=== PATIENT | male | born 1935 | race Caucasian/White ===

== ENCOUNTER 2018-03-27 17:42 | Emergency (ER) | payer MEDICARE, OTHER ==
[2018-03-27 17:53] VITALS: BP 166/65
--- NOTE | 2018-03-27 18:10 | ER Document Report ---
ED Medical Screen (RME) - General Chief Complaint: Urinary Problem Stated Complaint: PAINFUL URINATION Time Seen by Provider: 03/27/18 18:03 Notes: RAPID MEDICAL EVALUATION DISCLOSURE I have seen this patient as part of a Rapid Medical Evaluation and, if applicable, placed any initially appropriate orders. The patient will be seen and fully evaluated, including a full history and physical exam, by a provider ( in Main ED or Fast Track) when a room becomes available. 82-year-old male here with complaints of dysuria urgency incontinence ongoing past 2 days. Overnight, he has had a decrease in urination and abdominal pain, stating it feels like he is "unable to evacuate". He has only had a few drops or "a very slight stream" since yesterday evening. He denies any prior history of urinary retention or BPH. He also complains of a painful rash. He was seen yesterday at an urgent care and was diagnosed with shingles however family reports his urine did not show infection. EXAM Mild suprapubic TTP - Related Data Allergies/Adverse Reactions: ciprofloxacin [From Cipro] Allergy (Verified 03/27/18 17:47) Past Medical History - Social History Chew tobacco use (# tins/day): No Frequency of alcohol use: Occasional Drug Abuse: None Renal/ Medical History: Denies: Hx Peritoneal Dialysis Physical Exam - Vital signs Vitals: Temp Pulse Resp BP Pulse Ox 97.5 F 76 16 166/65 H 95 03/27/18 17:49 03/27/18 17:49 03/27/18 17:49 03/27/18 17:49 03/27/18 17:49 Course - Vital Signs Vital signs: Temp Pulse Resp BP Pulse Ox 97.5 F 76 16 166/65 H 95 03/27/18 17:49 03/27/18 17:49 03/27/18 17:49 03/27/18 17:49 03/27/18 17:49
[2018-03-27 19:11] LABS: ABSOLUTE EOSINOPHILS # (AUTO) 0.4 10^3/uL (0.0-0.6); ABSOLUTE LYMPHOCYTES (AUTO) 2.3 10^3/uL (0.5-4.7); ABSOLUTE MONOCYTES (AUTO) 0.7 10^3/uL (0.1-1.4); ABSOLUTE NEUT (AUTO) 5.2 10^3/uL (1.7-8.2); BASOPHILS % (AUTO) 0.5 % (0-2); EOSINOPHILS % (AUTO) 4.6 % (0-6); HEMATOCRIT 36.4 % (37.9-51.0); HEMOGLOBIN 12.3 g/dL (13.5-17.0); MEAN CORPUSCULAR HEMOGLOBIN 29.3 pg (27.0-33.4); MEAN CORPUSCULAR HGB CONC 33.8 g/dL (32.0-36.0); MEAN CORPUSCULAR VOLUME 87 fl (80-97); PLATELET COUNT 306 10^3/uL (150-450); RED CELL DISTRIBUTION WIDTH 14.4 % (11.5-14.0); SEGMENTED NEUTROPHILS % (AUTO) 59.9 % (42-78); TOTAL CELLS COUNTED % (AUTO) 100 %; WHITE BLOOD COUNT 8.7 10^3/uL (4.0-10.5)
[2018-03-27 19:23] LABS: APPEARANCE,URINE CLEAR; BILIRUBIN,URINE NEGATIVE (NEGATIVE); COLOR,URINE STRAW; GLUCOSE, URINE NEGATIVE (NEGATIVE); KETONES,URINE NEGATIVE (NEGATIVE); LEUKOCYTE ESTERASE,URINE NEGATIVE (NEGATIVE); NITRITE,URINE NEGATIVE (NEGATIVE); PROTEIN,URINE 30 mg/dL (NEGATIVE); URINE SPECIFIC GRAVITY 1.005; UROBILINOGEN,URINE NEGATIVE mg/dL (<2.0)
[2018-03-27 19:26] LABS: ALANINE AMINOTRANSFERASE 24 U/L (21-72); ALBUMIN 4.1 g/dL (3.5-5.0); ALKALINE PHOSPHATASE 41 U/L (38-126); ANION GAP 14 (5-19); ASPARTATE AMINO TRANSFERASE 21 U/L (17-59); BILIRUBIN,DIRECT 0.2 mg/dL (0.0-0.4); BILIRUBIN,TOTAL 0.4 mg/dL (0.2-1.3); BLOOD UREA NITROGEN 27 mg/dL (7-20); CALCIUM 9.9 mg/dL (8.4-10.2); CARBON DIOXIDE 25 mmol/L (22-30); CHLORIDE 105 mmol/L (98-107); GLUCOSE 84 mg/dL (75-110); POTASSIUM 4.5 mmol/L (3.6-5.0); SODIUM 143.5 mmol/L (137-145); TOTAL PROTEIN 8.6 g/dL (6.3-8.2)
[2018-03-27] MEDS ORDERED: LIDOCAINE 2% URO-JET 5 ML KIT MM ONE (20:50)
[2018-03-27] MEDS ORDERED: MORPHINE SULFATE IR 15 MG TABLET PO ONE (22:23)
--- NOTE | 2018-03-27 22:24 | ER Document Report ---
ED General - General Chief Complaint: Urinary Problem Stated Complaint: PAINFUL URINATION Time Seen by Provider: 03/27/18 18:03 Notes: Patient is an 82 year old male that comes to the ED for chief complaint of abdominal pain and swelling with painful urination and difficulty urinating. Patient states he feels slightly better after he does urinate, but is only dribbling. He denies history of BPH or the same difficulty. He denies vomiting , fever, flank pain. Patient also complains of a painful rash, seen yesterday and diagnosed with shingles, placed on Valtrex but not given any pain medication. Thirdly patient states he had a black stool earlier, eats a lot of spinach but wants to be checked for blood. Rash is mainly on the right buttock extending down the thigh. Past medical history includes hypertension, hyperlipidemia, type 2 diabetes. - Related Data Allergies/Adverse Reactions: ciprofloxacin [From Cipro] Allergy (Verified 03/27/18 17:47) Past Medical History - General Information source: Patient, Relative - Social History Smoking Status: Former Smoker Chew tobacco use (# tins/day): No Frequency of alcohol use: Occasional Drug Abuse: None Lives with: Family Family History: Reviewed & Not Pertinent Patient has suicidal ideation: No Patient has homicidal ideation: No - Past Medical History Cardiac Medical History: Reports: Hx Hypercholesterolemia, Hx Hypertension Endocrine Medical History: Reports: Hx Diabetes Mellitus Type 2 Renal/ Medical History: Denies: Hx Peritoneal Dialysis Past Surgical History: Reports: Hx Cholecystectomy - Immunizations Hx Diphtheria, Pertussis, Tetanus Vaccination: Yes Review of Systems - Review of Systems Constitutional: No symptoms reported EENT: No symptoms reported Cardiovascular: See HPI Respiratory: No symptoms reported Gastrointestinal: See HPI Genitourinary: No symptoms reported Male Genitourinary: No symptoms reported Musculoskeletal: No symptoms reported Skin: No symptoms reported Hematologic/Lymphatic: No symptoms reported Neurological/Psychological: No symptoms reported Physical Exam - Vital signs Vitals: Temp Pulse Resp BP Pulse Ox 97.5 F 76 16 166/65 H 95 03/27/18 17:49 03/27/18 17:49 03/27/18 17:49 03/27/18 17:49 03/27/18 17:49 - Notes Notes: GENERAL: Anxious, agitated, appears to be in pain, restless HEAD: Normocephalic, atraumatic. EYES: Pupils equal, round, and reactive to light. Extraocular movements intact. ENT: Oral mucosa moist, tongue midline. [Nares patent, no nasal septal hematoma , TM's intact.] NECK: Full range of motion. Supple. Trachea midline. LUNGS: Clear to auscultation bilaterally, no wheezes, rales, or rhonchi. No respiratory distress. HEART: Regular rate and rhythm. No murmur ABDOMEN: Distended abdomen, specifically in the lower quadrant, umbilical hernia is small and unremarkable and easily reducible. RECTAL: No black or bloody stool noted, no tenderness noted, unremarkable exam. EXTREMITIES: Moves all 4 extremities spontaneously. No edema, normal radial and dorsalis pedis pulses bilaterally. No cyanosis. BACK: no cervical, thoracic, lumbar midline tenderness. No saddle anesthesia, normal distal neurovascular exam. NEUROLOGICAL: Alert and oriented x3. Normal speech. [cranial nerves II through XII grossly intact]. SKIN: Warm, dry, normal turgor. No rashes or lesions noted. Course - Re-evaluation Re-evalutation: A quick bedside ultrasound was performed, this shows a very distended bladder with probably over 1000 cc of urine, patient has a distended belly with tenderness, Lopez catheterization was immediately performed and this had 1500 cc of urine evacuated. Afterwards patient's symptoms completely resolved. Patient very grateful, now asymptomatic except for intermittent pain from his rash. Rash does appear to be shingles, symptoms started 1 week ago, he is on Valtrex, discussed options, patient will be placed on pain medication and prednisone after discussion. He is very good at managing his blood sugars he reports. Stool is negative for blood, rectal exam unremarkable. Patient is visiting from out of town, he with family, he will follow-up with urology at home, he already called and had this set up, he states he will follow -up within the next few days, he will have the Lopez catheter remain with a leg bag, he was shown how to use this. Discussed follow-up and return precautions. Patient and family state understanding and agreement. - Vital Signs Vital signs: Temp Pulse Resp BP Pulse Ox 97.5 F 76 16 166/65 H 95 03/27/18 17:49 03/27/18 17:49 03/27/18 17:49 03/27/18 17:49 03/27/18 17:49 - Laboratory Result Diagrams: 03/27/18 18:49 03/27/18 18:49 Laboratory results interpreted by me: 03/27/18 03/27/18 03/27/18 18:49 18:49 18:49 RBC 4.20 L Hgb 12.3 L Hct 36.4 L RDW 14.4 H BUN 27 H Creatinine 1.41 H Est GFR ( Amer) 58 L Est GFR (Non-Af Amer) 48 L Total Protein 8.6 H Urine Protein 30 H Discharge - Discharge Clinical Impression: Obstructive uropathy Abdominal pain Qualifiers: Abdominal location: generalized Qualified Code(s): R10.84 - Generalized abdominal pain Shingles rash Qualifiers: Herpes zoster complications: without complications Qualified Code(s): B02.9 - Zoster without complications Condition: Stable Disposition: HOME, SELF-CARE Additional Instructions: You will need to keep the Lopez catheter in for now using the leg bag and emptying the leg bag. Your enlarged prostate appears to have caused an obstruction which caused urinary retention, bladder swelling, and abdominal pain. This was drained. You need to see Urology in close followup. Your urine does not show an infection today. Continue valacyclovir for shingles rash, you have been provided with prednisone additionally, avoid sugary foods while taking this. You can take the morphine for pain as prescribed, if you do also take the Colace stool softener to avoid constipation. Return immediately if you worsen including severe abdominal pain, vomiting, fever, or any other concerning or worsening symptoms. Prescriptions: Morphine Sulfate [Morphine Ir 15 Mg Tablet] 15 mg PO Q4HP PRN #20 tablet PRN Reason: Docusate Sodium [Colace 100 mg Capsule] 100 mg PO ASDIR PRN #30 capsule PRN Reason: Prednisone 60 mg PO DAILY #21 tablet
== END 2018-03-27 23:50 | disposition home or self-care (01) ==
LOC: ER 17:42
DX: N13.9 Obstructive and reflux uropathy, unspecified (principal); B02.9 Zoster without complications; K42.9 Umbilical hernia without obstruction or gangrene; R10.84 Generalized abdominal pain; R19.5 Other fecal abnormalities; E11.9 Type 2 diabetes mellitus without complications; I10 Essential (primary) hypertension; Z87.891 Personal history of nicotine dependence; Z88.1 Allergy status to other antibiotic agents; Z94.9 Transplanted organ and tissue status, unspecified
CPT/HCPCS: 99283; 51702; 36415; 87086; 85025; 82272; 80053; 81001; A9270

== ENCOUNTER 2018-03-28 01:56 | Emergency (ER) | payer MEDICARE, OTHER ==
[2018-03-28] MEDS ORDERED: ASPIRIN 81 MG TABLET, CHEWABLE PO ONE (03:44)
[2018-03-28 04:22] LABS: ABSOLUTE EOSINOPHILS # (AUTO) 0.1 10^3/uL (0.0-0.6); ABSOLUTE LYMPHOCYTES (AUTO) 0.9 10^3/uL (0.5-4.7); ABSOLUTE MONOCYTES (AUTO) 0.6 10^3/uL (0.1-1.4); ABSOLUTE NEUT (AUTO) 6.6 10^3/uL (1.7-8.2); BASOPHILS % (AUTO) 0.3 % (0-2); EOSINOPHILS % (AUTO) 0.7 % (0-6); HEMATOCRIT 33.9 % (37.9-51.0); HEMOGLOBIN 11.8 g/dL (13.5-17.0); LYMPHOCYTES % (AUTO) 10.6 % (13-45); MEAN CORPUSCULAR HEMOGLOBIN 29.8 pg (27.0-33.4); MEAN CORPUSCULAR HGB CONC 34.7 g/dL (32.0-36.0); MEAN CORPUSCULAR VOLUME 86 fl (80-97); MONOCYTES % (AUTO) 7.8 % (3-13); PLATELET COUNT 256 10^3/uL (150-450); RED BLOOD COUNT 3.95 10^6/uL (4.35-5.55); SEGMENTED NEUTROPHILS % (AUTO) 80.6 % (42-78); TOTAL CELLS COUNTED % (AUTO) 100 %; WHITE BLOOD COUNT 8.1 10^3/uL (4.0-10.5)
--- NOTE | 2018-03-28 04:23 | ER Document Report ---
ED Cardiac <EVELIOTIANNA - Last Filed: 03/28/18 15:45> - General TRAVEL OUTSIDE OF THE [place] IN LAST 30 DAYS: No <MARYLIN RANGEL - Last Filed: 03/29/18 19:27> - General Chief Complaint: Chest Pain Stated Complaint: CHEST PAIN Time Seen by Provider: 03/28/18 04:06 Notes: Patient is an 82-year-old male that comes emergency department for chief complaint of chest pain. He was discharged from here after he had had a problem with obstructive uropathy secondary to benign prostate hypertrophy, he had a Garcia catheter placed and he was asymptomatic, he states that after he got home and he was going to bed he suddenly felt a pain like a 2 x 4 across his chest, he felt nauseated, he broke out into a sweat, pain lasted for about 30-40 minutes and then resolved. He points to epigastric area as the site of his pain. He denies any current symptoms. He had been given morphine by mouth prior to going home but his symptoms occurred at least an hour after he had been given the medication. He also currently has shingles rash, is on Valtrex, he has a history of type 2 diabetes, hypertension, hyperlipidemia, former smoker , had a negative stress test 6 months ago, no history of NH or stents. Patient is visiting from [place]. (MARYLIN RANGEL) - Related Data Allergies/Adverse Reactions: ciprofloxacin [From Cipro] Allergy (Verified 03/27/18 17:47) Past Medical History - General Information source: Patient, Relative - Social History Smoking Status: Former Smoker Frequency of alcohol use: None Drug Abuse: None Lives with: Family Family History: Reviewed & Not Pertinent - Past Medical History Cardiac Medical History: Reports: Hx Hypercholesterolemia, Hx Hypertension Endocrine Medical History: Reports: Hx Diabetes Mellitus Type 2 Renal/ Medical History: Denies: Hx Peritoneal Dialysis - Immunizations Hx Diphtheria, Pertussis, Tetanus Vaccination: Yes <MARYLIN RANGEL - Last Filed: 03/29/18 19:27> Review of Systems - Review of Systems Constitutional: No symptoms reported EENT: No symptoms reported Cardiovascular: See HPI Respiratory: No symptoms reported Gastrointestinal: See HPI Genitourinary: No symptoms reported Male Genitourinary: No symptoms reported Musculoskeletal: No symptoms reported Skin: No symptoms reported Hematologic/Lymphatic: No symptoms reported Neurological/Psychological: No symptoms reported <MARYLIN RANGEL - Last Filed: 03/29/18 19:27> Physical Exam <TIANNA JAMES - Last Filed: 03/28/18 15:45> <MARYLIN RANGEL - Last Filed: 03/29/18 19:27> - Vital signs Vitals: Resp Pulse Ox 13 94 03/28/18 02:54 03/28/18 02:54 - Notes Notes: GENERAL: Alert, interacts well. No acute distress. HEAD: Normocephalic, atraumatic. EYES: Pupils equal, round, and reactive to light. Extraocular movements intact. ENT: Oral mucosa moist, tongue midline. NECK: Full range of motion. Supple. Trachea midline. LUNGS: Clear to auscultation bilaterally, no wheezes, rales, or rhonchi. No respiratory distress. HEART: Regular rate and rhythm. No murmur ABDOMEN: Mild epigastric tenderness. Non-distended. Bowel sounds present in all 4 quadrants. Small umbilical hernia, easily reduced. EXTREMITIES: Moves all 4 extremities spontaneously. No edema, normal radial and dorsalis pedis pulses bilaterally. No cyanosis. BACK: no cervical, thoracic, lumbar midline tenderness. No saddle anesthesia, normal distal neurovascular exam. NEUROLOGICAL: Alert and oriented x3. Normal speech. [cranial nerves II through XII grossly intact]. PSYCH: Normal affect, normal mood. SKIN: Warm, dry, normal turgor. No rashes or lesions noted. (MARYLIN RANGEL) Course - Laboratory Result Diagrams: 03/28/18 04:10 03/28/18 14:22 <TIANNA JAMES - Last Filed: 03/28/18 15:45> - Laboratory Result Diagrams: 03/28/18 04:10 03/28/18 14:22 <MARYLIN RANGEL - Last Filed: 03/29/18 19:27> - Re-evaluation Re-evalutation: 03/28/18 11:45 Second set of liver enzymes still elevated, mildly better however, troponin mildly increased to 0.017 from 0.015. MRCP revealed a normal hepatobiliary tract without gallbladder and no stones visualized, no pancreatitis. Patient has still not had any pain since checking into the emergency department, he is resting comfortably. 03/28/18 15:46 Third set of liver enzymes are better, pancreas, lipase is now normal, troponin is exactly the same, 0.017. At this time I did consult with my attending, Dr. Wheat, who agrees with discharge. Patient has an appointment on the next business day to follow-up with his urologist and will make an appointment to follow-up with his instrument and electrical technician this week as well. Patient wants to go home. He has had no further symptoms and EKGs have been without any acute ischemia. ( TIANNA JAMES) Patient asymptomatic now, epigastric pain is resolved, vital signs unremarkable. EKG showing sinus rhythm at a rate of 70 right bundle branch block, no T-wave inversions or ST segment changes in consecutive leads. No significant change from prior. Chest x-ray unremarkable. CBC unremarkable. Chemistry is changed significantly with now elevated LFTs, minimally elevated bilirubin. Lipase checked and is in the 400s. Patient had epigastric pain, nausea, and diaphoresis. Patient has had a cholecystectomy. Could be common bile duct abnormality. Also still could be cardiac related. Initial troponin 0.015, we will cycle. Patient remains asymptomatic on reevaluation. Attempted to obtain an ultrasound but the surgical scrub tech is and patient has active shingles and this was unable to be performed. As result CAT scan with IV contrast was performed although this was inconclusive. Shows stranding of the kidneys and ureters consistent with patient's obstructive uropathy which is now resolved with his garcia from earlier tonight. Passing urine normally now into the leg bag. No infection in the urine. 03/28/18 07:15 Introduced to Katy James PA-C at bedside. Plan is to repeat chemistry along with repeat troponin at 7:45, and to perform MRCP to rule out obstructive abnormality in the common bile duct. Patient and family are in full agreement with this plan. (MARYLIN RANGEL) - Vital Signs Vital signs: Temp Pulse Resp BP Pulse Ox 98.1 F 84 16 148/78 H 95 03/28/18 16:28 03/28/18 16:28 03/28/18 16:28 03/28/18 16:28 03/28/18 16:28 - Laboratory Laboratory results interpreted by ut: 03/28/18 03/28/18 03/28/18 04:10 04:10 04:10 RBC 3.95 L Hgb 11.8 L Hct 33.9 L Seg Neutrophils % 80.6 H Lymphocytes % 10.6 L Sodium BUN 24 H Creatinine 1.26 H Est GFR (Non-Af Amer) 55 L Glucose 175 H Direct Bilirubin 0.7 H AST 238 H ALT 159 H Creatine Kinase 51 L Albumin Lipase 453.8 H Urine Protein Urine Ketones Urine Blood 03/28/18 03/28/18 03/28/18 05:35 11:02 11:02 RBC Hgb Hct Seg Neutrophils % Lymphocytes % Sodium 145.5 H BUN 22 H Creatinine Est GFR (Non-Af Amer) Glucose 116 H Direct Bilirubin AST 163 H ALT 170 H Creatine Kinase Albumin Lipase 467.5 H Urine Protein 100 H Urine Ketones TRACE H Urine Blood MODERATE H 03/28/18 14:22 RBC Hgb Hct Seg Neutrophils % Lymphocytes % Sodium BUN Creatinine Est GFR (Non-Af Amer) Glucose 145 H Direct Bilirubin AST 119 H ALT 147 H Creatine Kinase Albumin 3.4 L Lipase Urine Protein Urine Ketones Urine Blood Discharge <TIANNA JAMES - Last Filed: 03/28/18 15:45> <MARYLIN RANGEL - Last Filed: 03/29/18 19:27> - Discharge Clinical Impression: Elevated liver enzymes Abdominal pain Qualifiers: Abdominal location: generalized Qualified Code(s): R10.84 - Generalized abdominal pain Condition: Stable Disposition: HOME, SELF-CARE Additional Instructions: Please follow-up with your instrument and electrical technician about today as well as your urologist. Return immediately for any new or worsening symptoms. Follow up with primary care provider, call tomorrow to make followup appointment.
[2018-03-28 04:39] LABS: ALANINE AMINOTRANSFERASE 159 U/L (21-72); ALBUMIN 3.8 g/dL (3.5-5.0); ALKALINE PHOSPHATASE 67 U/L (38-126); ANION GAP 11 (5-19); ASPARTATE AMINO TRANSFERASE 238 U/L (17-59); BILIRUBIN,DIRECT 0.7 mg/dL (0.0-0.4); BLOOD UREA NITROGEN 24 mg/dL (7-20); CALCIUM 9.6 mg/dL (8.4-10.2); CARBON DIOXIDE 26 mmol/L (22-30); CHLORIDE 106 mmol/L (98-107); CREATINE KINASE 51 U/L (55-170); GLUCOSE 175 mg/dL (75-110); POTASSIUM 4.3 mmol/L (3.6-5.0); SODIUM 143.3 mmol/L (137-145); TOTAL PROTEIN 7.8 g/dL (6.3-8.2)
[2018-03-28 04:51] LABS: CREATINE KINASE MB 1.47 ng/mL (<4.55); TROPONIN I 0.015 ng/mL
--- NOTE | 2018-03-28 05:01 | RADIOLOGY REPORT (SQ) ---
Chest single view on 03/28/2018 at 3:54 AM CLINICAL INDICATION: Chest pain COMPARISON: None FINDINGS: Heart is borderline in size. There is minimal basilar atelectasis. The lungs are otherwise clear. Hilar and mediastinal contours are within normal limits. Pulmonary vascularity is within normal limits. IMPRESSION: No acute disease.
[2018-03-28 06:02] LABS: APPEARANCE,URINE CLEAR; BILIRUBIN,URINE NEGATIVE (NEGATIVE); COLOR,URINE STRAW; GLUCOSE, URINE NEGATIVE (NEGATIVE); KETONES,URINE TRACE mg/dL (NEGATIVE); LEUKOCYTE ESTERASE,URINE NEGATIVE (NEGATIVE); NITRITE,URINE NEGATIVE (NEGATIVE); PROTEIN,URINE 100 mg/dL (NEGATIVE); URINE SPECIFIC GRAVITY 1.005; UROBILINOGEN,URINE NEGATIVE mg/dL (<2.0)
--- NOTE | 2018-03-28 06:23 | RADIOLOGY REPORT (SQ) ---
CT abdomen and pelvis with contrast on 03/28/2018 at 5:54 AM CLINICAL INDICATION: Epigastric pain, elevated lipase, nausea TECHNIQUE: Multiple axial images are obtained throughout the abdomen and pelvis following the administration of IV contrast. This exam was performed according to our departmental dose-optimization program, which includes automated exposure control, adjustment of the mA and/or kV according to patient size and/or use of iterative reconstruction technique. Total DLP is 1966.22 mGy*cm. COMPARISON: None FINDINGS: Abdomen: There is minimal bibasilar atelectasis. The patient is status post cholecystectomy. Multiple bilateral renal cysts are noted. Bilateral perinephric stranding is nonspecific and likely incidental but would recommend correlation with urinalysis to exclude infection as there is also some urothelial thickening bilaterally. No definite CT changes of pancreatitis are noted. The solid abdominal organs are otherwise unremarkable. Vascular calcifications are noted. There is no abdominal adenopathy. There is no free fluid or free air within the abdomen. There is diverticulosis. The abdominal portion of the GI tract is otherwise unremarkable. Pelvis: There is diverticulosis. Prostate is enlarged, please correlate with physical exam and PSA levels. Lopez catheter is noted within the bladder. There is no free fluid in the pelvis. There is no pelvic adenopathy. Pelvic portion of the GI tract including the appendix is otherwise unremarkable. Degenerative changes are noted in the spine and right hip. IMPRESSION: 1. Bilateral perinephric stranding and some urothelial thickening, recommend correlation with urinalysis to exclude infection. 2. Diverticulosis. 3. No definite CT changes of acute pancreatitis. 4. Enlarged prostate.
--- NOTE | 2018-03-28 10:10 | RADIOLOGY REPORT (SQ) ---
EXAM DESCRIPTION: MRI ABDOMEN WITHOUT COMPLETED DATE/TIME: 03/28/2018 9:41 am REASON FOR STUDY: MRCP - elev LFTs, lipase, bili; nausea/epig pain COMPARISON: None. TECHNIQUE: Noncontrast MRCP. Source and MIP images reviewed. LIMITATIONS: Motion. FINDINGS: GALLBLADDER: Surgically absent. INTRAHEPATIC DUCTS: Nondilated. EXTRAHEPATIC DUCTS: Common duct is normal caliber. No dilatation of the pancreatic duct. No ductal filling defects noted. PANCREAS: Generally homogeneous, no gross mass or significant signal alteration. No surrounding infl ammatory changes or fluid. Pancreatic duct is normal. LIVER, SPLEEN, KIDNEYS, ADRENALS: Renal cortical cysts. VESSELS: No aneurysm. LUNG BASES: Grossly clear. OTHER: No other significant finding. IMPRESSION: NORMAL HEPATOBILIARY SYSTEM. NO STONES OR COMMON DUCT ABNORMALITIES. TECHNICAL DOCUMENTATION: JOB ID: [id number] [employer]- All Rights Reserved Reading location - IP/workstation name: [email or web address]
[2018-03-28 11:38] LABS: ALANINE AMINOTRANSFERASE 170 U/L (21-72); ALBUMIN 3.5 g/dL (3.5-5.0); ALKALINE PHOSPHATASE 63 U/L (38-126); ANION GAP 11 (5-19); ASPARTATE AMINO TRANSFERASE 163 U/L (17-59); BILIRUBIN,DIRECT 0.3 mg/dL (0.0-0.4); BILIRUBIN,TOTAL 0.6 mg/dL (0.2-1.3); BLOOD UREA NITROGEN 22 mg/dL (7-20); CALCIUM 9.5 mg/dL (8.4-10.2); CARBON DIOXIDE 29 mmol/L (22-30); CHLORIDE 106 mmol/L (98-107); GLUCOSE 116 mg/dL (75-110); POTASSIUM 4.5 mmol/L (3.6-5.0); SODIUM 145.5 mmol/L (137-145); TOTAL PROTEIN 7.3 g/dL (6.3-8.2)
[2018-03-28] MEDS ORDERED: NORMAL SALINE 1000 ML 1,000 ML IV PRN (12:13)
[2018-03-28 15:22] LABS: ALANINE AMINOTRANSFERASE 147 U/L (21-72); ALBUMIN 3.4 g/dL (3.5-5.0); ALKALINE PHOSPHATASE 61 U/L (38-126); ANION GAP 11 (5-19); ASPARTATE AMINO TRANSFERASE 119 U/L (17-59); BILIRUBIN,DIRECT 0.2 mg/dL (0.0-0.4); BILIRUBIN,TOTAL 0.5 mg/dL (0.2-1.3); BLOOD UREA NITROGEN 20 mg/dL (7-20); CALCIUM 9.1 mg/dL (8.4-10.2); CARBON DIOXIDE 27 mmol/L (22-30); CHLORIDE 107 mmol/L (98-107); GLUCOSE 145 mg/dL (75-110); LIPASE 198.7 U/L (23-300); POTASSIUM 4.1 mmol/L (3.6-5.0); SODIUM 144.5 mmol/L (137-145)
[2018-03-28] MEDS ORDERED: PREDNISONE 20 MG TABLET PO ONE (15:48)
[2018-03-28] MEDS ORDERED: VALACYCLOVIR HCL 500 MG TABLET PO ONE (15:48)
[2018-03-28 16:29] VITALS: BP 148/78
--- NOTE | 2018-03-28 22:16 | EKG REPORT ---
SEVERITY:- ABNORMAL ECG - SINUS RHYTHM PROBABLE LEFT ATRIAL ABNORMALITY RBBB AND LAFB : Confirmed by: Carey Faith 28-Mar-2018 22:16:11
== END 2018-03-28 16:30 | disposition home or self-care (01) ==
LOC: ER 01:56
DX: R10.84 Generalized abdominal pain (principal); R74.8 Abnormal levels of other serum enzymes; R07.9 Chest pain, unspecified; N40.0 Benign prostatic hyperplasia without lower urinary tract symptoms; N13.8 Other obstructive and reflux uropathy; R11.0 Nausea; R61 Generalized hyperhidrosis; B02.9 Zoster without complications; I45.10 Unspecified right bundle-branch block; E11.9 Type 2 diabetes mellitus without complications; I10 Essential (primary) hypertension; Z87.891 Personal history of nicotine dependence; Z98.890 Other specified postprocedural states; Z88.1 Allergy status to other antibiotic agents; Z90.49 Acquired absence of other specified parts of digestive tract
CPT/HCPCS: 93005; 99285; 36415; 82553; 82550; 83690; 85025; 80053; 81001; 84484; 74181; 71045; 74177; 93010; A9270 ×2; J7030; J7512